=== PATIENT | female | born 1990 | race Asian ===

== ENCOUNTER 2019-08-27 13:36 | Emergency (ER) | payer OTHER ==
[~2019-08-27] VITALS: Ht 162.6 cm; Wt 57.2 kg
[2019-08-27 13:42] VITALS: BP 117/71
--- NOTE | 2019-08-27 13:54 | NUR ---
29 Y/O FEMALE C/O LEFT SHOULDER PAIN STARTING YESTERDAY MORNING WHEN SHE WOKE UP. PT STATES PAIN BEGINS ON LEFT SHOULDER AREA AND RADIATES TO NECK AREA, DENIES ANY SHOULDER PAIN ON RIGHT SIDE. PT STATES SHE USUALLY DOES NOT SLEEP WITH PILLOW AND DECIDED TO SLEEP WITH PILLOW THE NIGHT BEFORE LAST, AND THAT IS WHEN SHE WOKE UP WITH THE PAIN. DENIES ANY RECENT TRAUMA OR INJURY TO THAT AREA. NO DEFORMITYS SEEN. SKIN IN TACT. FULL ROM IN TACT. NO PMH NKA
[2019-08-27] MEDS ORDERED: KETOROLAC 30 MG/ML VIAL IM ONE (14:05)
[2019-08-27 14:42] VITALS: BP 117/71
--- NOTE | 2019-08-27 14:43 | NUR ---
Patient discharged with v/s stable. Written and verbal after care instructions given and explained. Patient alert, oriented and verbalized understanding of instructions. Ambulatory with steady gait. All questions addressed prior to discharge. ID band removed. Patient advised to follow up with PMD. Rx of flexeril, naproxen given. Patient educated on indication of medication including possible reaction and side effects. Opportunity to ask questions provided and answered.
== END 2019-08-27 14:43 | disposition home or self-care (01) ==
LOC: MED 13:36
DX: S16.1XXA Strain of muscle, fascia and tendon at neck level, initial encounter (principal); M75.92 Shoulder lesion, unspecified, left shoulder; X58.XXXA Exposure to other specified factors, initial encounter; Y93.89 Activity, other specified; Y92.89 Other specified places as the place of occurrence of the external cause; Y99.8 Other external cause status
CPT/HCPCS: 96372; 99283; J1885